=== PATIENT | female | born 1965 | race Caucasian/White ===

== ENCOUNTER 2023-12-19 22:38 | Observation (INO) | payer OTHER, SELFPAY ==
--- NOTE | ~2023-12-19 | CT_ITS ---
Non-contrast Head CT History: Weakness, confusion Technique: Axial non-contrast imaging of the brain was performed. Dose reduction technique was used on this scan by utilizing automated exposure control and iterative reconstruction technique. The dose -length product (DLP) was 605.33 mGy-cm. Findings: There is no evidence of intracranial hemorrhage, mass lesion, or acute infarct. Brain par enchyma appears normal. The ventricles and subarachnoid spaces are normal in size. The calvarium ap pears normal. The visualized paranasal sinuses and mastoid air cells are clear. Impression: No significant abnormality seen. Reviewed, dictated and finalized at location . Impression: No significant abnormality seen.
--- NOTE | ~2023-12-19 | XR_ITS ---
Clinical Indication: Dizziness PA and lateral views of the chest: Comparison: 09/21/2016 Findings: The lungs are clear, without evidence of focal consolidation or pleural effusion. Cardiome diastinal silhouette is within normal limits. Bones and soft tissues are unremarkable. Impression: Normal chest. Reviewed, dictated and finalized at location . Impression: Normal chest.
[2023-12-19 22:44] VITALS: BP 173/86; PULSE 82; RESP 20; TEMP 36.3; O2SAT 99
[2023-12-19 23:01] VITALS: PULSE 79; O2SAT 97
[2023-12-19 23:02] VITALS: BP 175/83; PULSE 78; RESP 16; O2SAT 96
[2023-12-19 23:05] LABS: Basophils Percent Auto 0.5 % (0.2-1.2); Eosinophils Absolute Auto 0.1 K/mm3 (0-0.3); Eosinophils Percent Auto 1.5 % (0-4.4); Hematocrit 38.3 % (37.0-47.0); Hemoglobin 12.6 g/dL (12.0-15.0); Immature Granulocyte Absolute 0.01 K/mm3 (0.00-0.031); Immature Granulocyte Percent A 0.2 % (0-0.5); Lymphocytes Absolute Auto 1.87 K/mm3 (0.9-3.2); Lymphocytes Percent Auto 31.2 % (18.3-44.2); Mean Corpuscular HGB Conc 32.9 g/dl (32-36); Mean Corpuscular Hemoglobin 27.5 pg (26-34); Mean Corpuscular Volume 83.6 fl (80-100); Mean Platelet Volume 10.1 fl (7.4-10.4); Monocytes Absolute Auto 0.4 K/mm3 (0.1-0.6); Neutrophils Absolute Auto 3.6 K/mm3 (1.3-6.7); Neutrophils Percent Auto 59.6 % (45.5-73.1); Platelet Count Result 221 k/mm3 (150-375); Red Blood Count 4.58 M/mm3 (4.2-5.4); Red Cell Distribution Width 13.8 % (11.5-14.5)
[2023-12-19 23:22] LABS: Beta-Hydroxybutyrate/Acetoacetate 0.27 mmol/L (0.02-0.27)
[2023-12-19 23:32] LABS: Alanine Aminotransferase 43 U/L (6-35); Alkaline Phosphatase 121 U/L (38-126); Anion Gap 9 mmol/L (4-12); Aspartate Amino Transferase 50 U/L (14-36); Bilirubin,Total 0.4 mg/dL (0.2-1.3); Blood Urea Nitrogen 36 mg/dL (7-17); Calcium 8.7 mg/dL (8.4-10.2); Carbon Dioxide 21 mmol/L (22-30); Chloride 97 mmol/L (98-107); Estimated CRCL calculation 72 ml/min; Estimated Glomerular Filt Rate > 60; Glucose 722 mg/dL (65-110); Magnesium 1.8 mg/dL (1.6-2.3); Phosphorus 2.9 mg/dL (2.5-4.5); Potassium 4.2 mmol/L (3.4-5.0); Sodium 127 mmol/L (137-145)
[2023-12-19 23:37] LABS: Pregnancy On Board Control Positive; Urine Pregnancy Test Negative
[2023-12-19 23:41] LABS: Add Urine Microscopic? YES; Appearance Urine Clear (Clear); Bacteria Urine 4+ /hpf; Bilirubin Urine Negative (Negative); Blood Urine Negative (Negative); Budding Yeast Urine Present /hpf; Color Urine Yellow (Yellow); Glucose Urine UA 3+ mg/dL (Negative); Ketones Urine Negative (Negative); Leukocyte Esterase Ur Negative LEU/UL (Negative); Need Manual Microscopic Reviewed; Nitrate Urine Positive (Negative); Non Pathogenic Casts 0-2; Protein Urine Negative (Negative); RBC Urine 0-2 /hpf (0-2); Specific Grav Ur 1.029 (1.001-1.035); Squamous Epithelial Cell Urine None Seen /hpf (Few); Urobilinogen Urine 0.2 mg/dL (<2.0); pH Urine 7.5 (5.0-9.0)
[2023-12-19] MEDS: SODIUM CHLORIDE 0.9% IV 1,000 ML 999 ML IV CONT (23:50)
[2023-12-20] VITALS (8 sets, daily range): BP systolic 115–171; BP diastolic 72–87; PULSE 70–88; RESP 14–18; TEMP 36.2–36.4; O2SAT 92–97; BMI 22.6
--- NOTE | 2023-12-20 | ECG_ITS ---
SEE SCANNED COPY FOR CONFIRMED REPORT MTDD
--- NOTE | 2023-12-20 00:02 | ED.WEAKNESS ---
HPI - Weakness General Chief complaint: Weakness Stated complaint: altered, high blood sugar Time Seen by Provider: 12/19/23 23:50 Source: patient Mode of arrival: EMS Limitations: other (poor historian) History of Present Illness HPI Narrative: This is a 58-year-old female that presents to the emergency department for generalized weakness. Reports over the last several hours she has been feeling dizzy and weak. Reports feeling generally unwell. She checked her blood sugar and it was very high which prompted her to be seen. Reports some shortness of breath. Denies fevers or vomiting. Related Data Allergies Allergy/AdvReac Type Severity Reaction Status Date / Time No Known Allergies Allergy Unknown Verified 12/19/23 22:48 Review of Systems Review of Systems: CONSTITUTIONAL: Denies fever CARDIOVASCULAR: Denies chest pain RESPIRATORY: Reports dyspnea. GASTROINTESTINAL: Denies abdominal pain, nausea, vomiting GENITOURINARY: Reports dysuria. Denies hematuria. All systems reviewed & are unremarkable except as noted in HPI and below PMFSH Past Medical History Medical History (Updated 12/20/23 @ 03:23 by Veronica Pike PA-C) History of diabetes mellitus History of hyperlipidemia History of hypertension Social History Social History (Updated 12/20/23 @ 00:05 by Veronica Pike PA-C) Substance use: never Exam Narrative: GENERAL: Well-appearing, well-nourished, and in no acute distress. HEAD: Normocephalic, atraumatic. EYES: PERRLA and EOMI. ENT: Nares clear, no rhinorrhea or epistaxis. Mucous membranes moist. Oropharynx without tonsillar hypertrophy exudate or other lesions. Bilateral TMs pearly paez non-bulging NECK: Supple. No adenopathy or masses. CHEST: Clear to auscultation. No respiratory distress. No wheezes rales or rhonchi HEART: Regular rate and rhythm. No murmur heard. Normal peripheral pulses. ABDOMEN: Soft, nontender, nondistended, normal active bowel sounds. EXTREMITIES: Normal range of motion. No edema or obvious deformity. Strength equal in bilateral upper and lower extremities (5/5) SKIN: Warm, dry, no rash. NEURO: No focal deficits. Alert and oriented x3. Cranial nerves 2-12 grossly intact PSYCH: Normal mood and affect Course Course Emergency Course: Patient updated on her workup and recommendation for admission Consultations Consultation #1: Spoke with hospitalist about patient and workup who accepts admission Date: 12/20/23 Vital Signs Vital signs: Vital Signs Temperature 97.4 F L 12/19/23 22:44 Pulse Rate 82 12/19/23 22:44 Respiratory Rate 20 12/19/23 22:44 Blood Pressure 173/86 H 12/19/23 22:44 Pulse Oximetry 99 12/19/23 22:44 Oxygen Delivery Room Air 12/19/23 22:44 Temperature 97.4 F L 12/19/23 22:44 Pulse Rate 80 12/20/23 03:01 Respiratory Rate 14 12/20/23 03:01 Blood Pressure 135/83 12/20/23 03:01 Pulse Oximetry 95 12/20/23 03:01 Oxygen Delivery Room Air 12/19/23 23:01 MDM - Weakness MDM Narrative Medical decision making narrative: Patient presents to the emergency department for generalized weakness and confusion. Patient is neurologically intact, although a poor historian. She is afebrile and nontoxic appearing. Her vitals are stable. Cbc without leukocytosis. Metabolic panel with blood glucose of 722. Bicarb is 21, no anion gap. Urine without evidence of infection. This will be sent for culture. Beta hydroxybutyrate is not elevated. CT brain without acute findings. Chest x-ray without acute cardiopulmonary abnormality. EKG without concerning changes. Patient updated on her workup and recommendation for admission. Spoke with hospitalist about patient and workup who accepts admission Differential Diagnosis Differential diagnosis: Likely anemia, sepsis, dehydration and other (UTI, hyperglycemia, DKA) Lab Data Attestation: I reviewed the patient's lab results. 12/19/23 23:00 12/19/23 22:59
[2023-12-20 00:28] LABS: Ethanol < 10 mg/dL (<10)
[2023-12-20 00:38] LABS: Amphetamine Screen Urine Negative (Negative); Barbiturate Screen Urine Negative (Negative); Benzodiazepines Screen Urine Negative (Negative); Cannabinoid Screen Urine Negative (Negative); Cocaine Screen Urine Negative (Negative); Methadone Screen Urine Negative (Negative); Opiate Screen Urine Negative (Negative); Phencyclidine Screen Urine Negative (Negative)
[2023-12-20] MEDS: SODIUM CHLORIDE 0.9% IV 1,000 ML 999 ML IV CONT (02:02)
[2023-12-20 02:05] LABS: Glucose Point of Care 476 mg/dl (65-105)
[2023-12-20] MEDS: SODIUM CHLORIDE 0.9% IV 1,000 ML 125 ML IV CONT ×3 (03:17→20:23)
--- NOTE | 2023-12-20 04:25 | ADMGEN ---
This patient, Cathy Lopes, was admitted to [facility] Surg Room 321-02. Patient/family oriented to hospital policies and general routines including ID bracelet, bed and alarms, visiting hours, pain management, procedures, bathroom and other care routines, personal items, smoking policy, room service/diet, and visiting hours. Information on how to activate the Rapid Response Team has been discussed. Patient/Family are encouraged to report perceived risks to care and to ask questions if they do not understand what they are told or what they should do.
[2023-12-20 05:01] LABS: Glucose Point of Care 304 mg/dl (65-105)
--- NOTE | 2023-12-20 05:03 | PC.NURSE ---
Pt unable to tell me exact medications that she takes. This RN used external med list and went over medications with patient to our best ability. Pt said sister can help with medications in the morning.
--- NOTE | 2023-12-20 05:16 | PM.IMHP ---
H&P: HPI History of Present Illness Date/Time: 12/20/23 05:16 Chief Complaint: weakness Narrative: patient is a 58-year-old female who presented to the emergency room but it is 7-8 hours of dizziness weakness patient has history of diabetes and was noted to have a blood sugar of about 700 patient was not in any DKA but had hyperglycemia. Patient also complains of some urgency frequency of urination no abdominal pain nausea vomiting diarrhea patient has history of hyperlipidemia and hypertension Review of Systems Review of Systems: All systems reviewed & are unremarkable except as noted in HPI and below PMFSH Past Medical History Medical History (Updated 12/20/23 @ 05:19 by Antoine Milton MD) History of diabetes mellitus History of hyperlipidemia History of hypertension Family History Family History (Updated 12/20/23 @ 04:27 by Monserrat Fuchs RN) Mother COPD (chronic obstructive pulmonary disease) Grandparent Myocardial infarct Grandparent Myocardial infarct Social History Social History (Updated 12/20/23 @ 00:05 by Veronica Pike PA-C) Smoking status: Never smoker Alcohol intake: never Substance use: never Do You Feel Safe in your Home?: Yes Lack of Transportation: No Lack of Food: Never True Current Housing: I Have Housing Concerned About Future Housing: No Difficulty Paying Gas/Electric Bills: No Difficulty Paying for Meds: No Currently Unemployed: No Education: Grade School Difficulty w/ Childcare or Family Care: No Spiritual care concerns: No Meds Home Medications and Allergies Home Medications Medication Instructions Recorded Confirmed Type atorvastatin 40 mg tablet 40 mg PO DAILY 12/20/23 12/20/23 History blood sugar diagnostic (OneTouch 12/20/23 12/20/23 History Ultra Test strips) empagliflozin 25 mg tablet 25 mg PO DAILY 12/20/23 12/20/23 History (Jardiance) gabapentin 100 mg capsule 100 mg PO TID 12/20/23 12/20/23 History insulin glargine 100 unit/mL (3 4 unit subcut TIDWM 12/20/23 12/20/23 History mL) subcutaneous pen (Basaglar KwikPen U-100 Insulin) insulin lispro 100 unit/mL 23 unit subcut TIDWM 12/20/23 12/20/23 History subcutaneous pen lancets 33 gauge (OneTouch Delica 12/20/23 12/20/23 History Plus Lancet) losartan 25 mg tablet 25 mg PO DAILY 12/20/23 12/20/23 History pen needle, diabetic 31 gauge x 12/20/23 12/20/23 History 5/16 (TRUEplus Pen Needle) Allergies Allergy/AdvReac Type Severity Reaction Status Date / Time No Known Allergies Allergy Unknown Verified 12/20/23 04:31 Vital Signs Vital Signs - 24 hr 12/19/23 22:44 12/19/23 23:01 12/19/23 23:01 Temperature 36.3 C L Pulse Rate 82 79 Respiratory Rate 20 Blood Pressure 173/86 H Pulse Oximetry 99 97 Oxygen Delivery Room Air Room Air 12/19/23 23:02 12/20/23 00:40 12/20/23 01:32 Temperature Pulse Rate 78 83 88 Respiratory Rate 16 17 16 Blood Pressure 175/83 H 115/73 Pulse Oximetry 96 96 94 Oxygen Delivery 12/20/23 02:33 12/20/23 03:01 12/20/23 04:02 Temperature Pulse Rate 81 80 73 Respiratory Rate 18 14 16 Blood Pressure 143/81 H 135/83 142/86 H Pulse Oximetry 92 95 95 Oxygen Delivery Exam Narrative: GENERAL: Well appearing, no acute distress. HEAD: Normocephalic, atraumatic. NECK: Supple. No adenopathy, no masses. RESPIRATORY: respirations nonlabored. , no rales, wheezing. CARDIOVASCULAR: Regular rate and rhythm without murmurs, . Peripheral pulses 2+ and equal bilaterally. ABDOMINAL: Soft, nontender, nondistended, no hepatosplenomegaly. Normoactive BS. MUSCULOSKELETAL: no Epigastric and no hypochondrial tenderness SKIN: Warm, dry, NEURO: A&O X3. Moves all extremities H&P: Results Labs Labs: Short CBC 12/19/23 Range/Units 23:00 WBC 6.0 (4.5-10.0) K/mm3 Hgb 12.6 (12.0-15.0) g/dL Hct 38.3 (37.0-47.0) % Plt Count 221 (150-375) k/mm3 BMP 12/19/23
[2023-12-20 06:15] LABS: Hematocrit 35.6 % (37.0-47.0); Hemoglobin 11.4 g/dL (12.0-15.0); Mean Corpuscular Hemoglobin 27.8 pg (26-34); Mean Corpuscular Volume 86.8 fl (80-100); Mean Platelet Volume 9.6 fl (7.4-10.4); Platelet Count Result 193 k/mm3 (150-375); Red Cell Distribution Width 13.7 % (11.5-14.5); White Blood Count 6.1 K/mm3 (4.5-10.0)
[2023-12-20 06:22] LABS: Alanine Aminotransferase 39 U/L (6-35); Albumin Level 3.3 g/dL (3.5-5.1); Alkaline Phosphatase 102 U/L (38-126); Anion Gap 2 mmol/L (4-12); Aspartate Amino Transferase 43 U/L (14-36); Bilirubin,Total 0.3 mg/dL (0.2-1.3); Blood Urea Nitrogen 26 mg/dL (7-17); Calcium 8.2 mg/dL (8.4-10.2); Carbon Dioxide 24 mmol/L (22-30); Chloride 107 mmol/L (98-107); Estimated CRCL calculation 83 ml/min; Estimated Glomerular Filt Rate > 60; Glucose 331 mg/dL (65-110); Potassium 3.5 mmol/L (3.4-5.0); Sodium 133 mmol/L (137-145)
[2023-12-20 07:13] LABS: Hemoglobin A1C > 14.0 % (<5.7)
[2023-12-20 07:53] LABS: Glucose Point of Care 276 mg/dl (65-105)
--- NOTE | 2023-12-20 08:11 | PM.IMPN ---
Progress Note: A&P Assessment and Plan (1) Acute UTI: Code(s): N39.0 - Urinary tract infection, site not specified Status: Acute Assessment and Plan: UA showed 3+ glucose, positive nitrate, 11-20 urine wbc's, 4+ bacteria, urine yeast present. Urine and blood cultures are obtained and are pending Continue Rocephin (2) Metabolic encephalopathy: Code(s): G93.41 - Metabolic encephalopathy Status: Acute Assessment and Plan: Patient had altered mental status on arrival with high blood sugar of 722, without DKA Continue neuro checks (3) Dehydration: Code(s): E86.0 - Dehydration Status: Acute Assessment and Plan: Patient given 2L NS in the ED (4) Hyperlipidemia: Code(s): E78.5 - Hyperlipidemia, unspecified Status: Chronic Assessment and Plan: Continue atorvastatin (5) Hypertension: Code(s): I10 - Essential (primary) hypertension Status: Acute Assessment and Plan: Blood pressures ranging Continue losartan (6) Diabetes mellitus: Code(s): E11.9 - Type 2 diabetes mellitus without complications Status: Acute Assessment and Plan: Blood sugars ranging 276-331 Hemoglobin A1c greater than 14.0 Initial blood sugar was 722 Continue Jardiance Accu checks AC/HS hypoglycemic protocol in place high dose SSI ordered 20 units of Lantus ordered for tonight will D/C mealtime insulin for now. Time Spent With Patient Time with patient: 25 - 35 minutes Subjective Date/time seen: 12/20/23 08:11 Interval history: This is a 58 year old female who presented to the hospital with dizziness, weakness, and hyperglycemia with BG of 700 without DKA. She also had urinary frequency. Work up in the hospital included chest x-ray which was negative. Head Ct was also negative. Initial labs shown normal WBC 6.0, Na+ 127, Chloride 97, Bicarb 21, anion gap 9, BG 722, Hgb A1C >14.0, AST 43, ALT 39. UA shown 3+ urine glucose, positive nitrates, 11-20 WBC 11-20, 4+ bacteria, urine yeast present. UDS negative. Blood and urine cultures obtained and pending. Patient was started on Rocephin. On examination today patient is alert and oriented x3. Patient denies any fever, chills, nausea, vomiting, diarrhea, abdominal pain, chest pain, shortness a breath. Labs today revealed Hgb 11.4, Na+ 133, BG ranging 276-331, AST 43, ALT 39. Urology seen patient today and is recommending that the Pitt be changed. She will need to follow up with Urology on an outpatient basis for continued care. Last time she had her Pitt changed was back in September/October. Review of Systems Review of Systems: All systems reviewed & are unremarkable except as noted in HPI and below Constitutional: Constitutional: Reports as per HPI and Reports no additional constitutional complaints Eyes: Eyes: Reports as per HPI and Reports no additional eye complaints ENT: Reports system reviewed and no additional complaints, except as documented and Reports as per HPI Cardiovascular: Cardiovascular: Reports as per HPI and Reports no additional cardiovascular complaints Respiratory: Respiratory: Reports as per HPI and Reports no additional respiratory complaints Gastrointestinal: Gastrointestinal: Reports as per HPI and Reports no additional gastrointestinal complaints Genitourinary: Genitourinary: Reports no additional female genitourinary complaints and Reports as per HPI Musculoskeletal: Musculoskeletal: Reports no additional musculoskeletal complaints and Reports as per HPI Integumentary/Breasts: Skin/Breast: Reports system reviewed and no additional complaints, except as docu and Reports as per HPI Neurologic: Reports system reviewed and no additional complaints, except as documented and Reports as per HPI Psychiatric: Psychiatric: Reports no additional psychiatric complaints and Reports as per HPI Exam Narrative: General: In no acute distress, well nourished Head:
[2023-12-20] MEDS: ENOXAPARIN 40 MG/0.4 ML SYRINGE SUB-Q (08:27)
[2023-12-20] MEDS: PANTOPRAZOLE 40 MG TABLET PO (08:28)
[2023-12-20] MEDS: INSULIN ASPART (*BKC) 100 UNITS/ML SUB-Q ×3 (08:28→20:27)
[2023-12-20] MEDS: GABAPENTIN 100 MG CAPSULE PO ×3 (10:19→17:07)
[2023-12-20] MEDS: LOSARTAN POTASSIUM 25 MG TABLET PO (10:19)
[2023-12-20] MEDS: ATORVASTATIN 40 MG TABLET PO (10:19)
[2023-12-20] MEDS: EMPAGLIFLOZIN 25 MG TABLET PO (10:20)
[2023-12-20 11:31] LABS: Glucose Point of Care 257 mg/dl (65-105)
--- NOTE | 2023-12-20 12:22 | WPDURCON ---
Assessment and Plan Assessment and plan (1) Acute UTI: Code(s): N39.0 - Urinary tract infection, site not specified Status: Acute Assessment and Plan: UA slightly abnormal. Urine cultures pending. 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 Has not been compliant with routine catheter management and is not currently established with a urologist. Recommend removal and replacement of new Pitt catheter at this time given timing of last catheter change is unknown. Long discussion with the patient about need for routine monthly catheter changes and discussed risk of infection without proper catheter management. She will need to reestablish care with urology. Will need to be referred to [facility] in [place] due to insurance. 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 She presented to the emergency department on 12/20/2023 with complaints of generalized weakness and overall feeling poorly. On admission, her vital signs were stable, she was afebrile, WBC 6.0, creatinine 0.7. Blood sugar was markedly elevated. UA abnormal with positive nitrates and 11-20 WBC. She was started on empiric IV antibiotics. Urine culture is pending. The patient is a relatively poor historian and not able to provide much relevant history. She isn't entirely sure why she has a chronic Pitt. She estimates that she has had this for about 3 years. She states that she previously saw a urologist at [facility] in [place] though has not been seen in some time. She is unsure when her Pitt catheter was last changed, she states maybe sometime in September or October but she can not be certain. She states it was last changed during an ER visit and does not have anyone who routinely manages her catheter. On evaluation, it does appear to be draining well without any significant sediment. She denies any episodes of hematuria states that her urine has been clear within the Pitt tubing. Review of Systems Review of Systems: All systems reviewed & are unremarkable except as noted in HPI and below PMFSH Past Medical History Medical History (Updated 12/20/23 @ 12:28 by Kailey Schneider PA-C) History of diabetes mellitus History of hyperlipidemia History of hypertension Family History Family History (Updated 12/20/23 @ 04:27 by Monserrat Fuchs, RN) Mother COPD (chronic obstructive pulmonary disease) Grandparent Myocardial infarct Grandparent Myocardial infarct Social History Social History (Updated 12/20/23 @ 00:05 by Veronica Pike PA-C) Smoking status: Never smoker Alcohol intake: never Substance use: never Do You Feel Safe in your Home?: Yes Lack of Transportation: No Lack of Food: Never True Current Housing: I Have Housing Concerned About Future Housing: No Difficulty Paying Gas/Electric Bills: No Difficulty Paying for Meds: No Currently Unemployed: No Education: Grade School Difficulty w/ Childcare or Family Care: No Spiritual care concerns: No Meds Home Medications and Allergies Home Medications Medication Instructions Recorded Confirmed Type atorvastatin 40 mg tablet 40 mg PO DAILY 12/20/23 12/20/23 History blood sugar diagnostic (OneTouch 12/20/23 12/20/23 History Ultra Test strips) empagliflozin 25 mg tablet 25 mg PO DAILY 12/20/23 12/20/23 History (Jardiance) gabapentin 100 mg capsule 100 mg PO TID 12/20/23 12/20/23 History insulin glargine
[2023-12-20 16:51] LABS: Glucose Point of Care 187 mg/dl (65-105)
--- NOTE | 2023-12-20 18:43 | PC.NURSE ---
On 12/20/23, the BOLT LOADER,Joi Jensen, provided care and completed [facility] hospital documentation on this patient. I have reviewed the BOLT LOADER's documentation and agree with the findings.
[2023-12-20] MEDS: INSULIN GLARGINE (*BKC) 100 UNITS/ML 20 UNITS SUB-Q (20:23)
[2023-12-20 20:31] LABS: Glucose Point of Care 288 mg/dl (65-105)
[2023-12-21] MEDS: SODIUM CHLORIDE 0.9% IV 1,000 ML 125 ML IV CONT (05:44)
[2023-12-21 06:00] VITALS: BP 172/86; PULSE 68; RESP 16; TEMP 36.1; O2SAT 97
[2023-12-21 07:01] LABS: Basophils Percent Auto 0.4 % (0.2-1.2); Eosinophils Absolute Auto 0.1 K/mm3 (0-0.3); Eosinophils Percent Auto 2.6 % (0-4.4); Hemoglobin 12.7 g/dL (12.0-15.0); Immature Granulocyte Absolute 0.02 K/mm3 (0.00-0.031); Immature Granulocyte Percent A 0.4 % (0-0.5); Lymphocytes Absolute Auto 1.63 K/mm3 (0.9-3.2); Lymphocytes Percent Auto 32.6 % (18.3-44.2); Mean Corpuscular HGB Conc 31.8 g/dl (32-36); Mean Corpuscular Hemoglobin 27.5 pg (26-34); Mean Corpuscular Volume 86.8 fl (80-100); Mean Platelet Volume 9.7 fl (7.4-10.4); Monocytes Absolute Auto 0.4 K/mm3 (0.1-0.6); Monocytes Percent Auto 7.2 % (2.6-8.5); Neutrophils Absolute Auto 2.8 K/mm3 (1.3-6.7); Neutrophils Percent Auto 56.8 % (45.5-73.1); Platelet Count Result 217 k/mm3 (150-375); Red Blood Count 4.61 M/mm3 (4.2-5.4)
[2023-12-21 07:12] LABS: Alanine Aminotransferase 58 U/L (6-35); Albumin Level 3.5 g/dL (3.5-5.1); Alkaline Phosphatase 103 U/L (38-126); Anion Gap 4 mmol/L (4-12); Aspartate Amino Transferase 78 U/L (14-36); Bilirubin,Total 0.4 mg/dL (0.2-1.3); Blood Urea Nitrogen 17 mg/dL (7-17); Calcium 8.2 mg/dL (8.4-10.2); Carbon Dioxide 25 mmol/L (22-30); Chloride 108 mmol/L (98-107); Estimated CRCL calculation 83 ml/min; Estimated Glomerular Filt Rate > 60; Glucose 236 mg/dL (65-110); Potassium 4.1 mmol/L (3.4-5.0); Sodium 137 mmol/L (137-145)
[2023-12-21 07:28] LABS: Glucose Point of Care 209 mg/dl (65-105)
[2023-12-21 08:00] VITALS: PULSE 68; RESP 16; O2SAT 97
[2023-12-21] MEDS: EMPAGLIFLOZIN 25 MG TABLET PO (09:06)
[2023-12-21] MEDS: ATORVASTATIN 40 MG TABLET PO (09:06)
[2023-12-21] MEDS: GABAPENTIN 100 MG CAPSULE PO ×3 (09:06→17:36)
[2023-12-21] MEDS: PANTOPRAZOLE 40 MG TABLET PO (09:06)
[2023-12-21] MEDS: LOSARTAN POTASSIUM 25 MG TABLET PO (09:06)
[2023-12-21] MEDS: ENOXAPARIN 40 MG/0.4 ML SYRINGE SUB-Q (09:08)
[2023-12-21 11:39] LABS: Glucose Point of Care 259 mg/dl (65-105)
[2023-12-21] MEDS: INSULIN ASPART (*BKC) 100 UNITS/ML SUB-Q ×3 (13:44→20:33)
[2023-12-21 14:00] VITALS: BP 127/89; PULSE 85; RESP 14; TEMP 36.7; O2SAT 97
--- NOTE | 2023-12-21 15:21 | PM.IMPN ---
Progress Note: A&P Assessment and Plan (1) Diabetes mellitus: Code(s): E11.9 - Type 2 diabetes mellitus without complications Status: Acute Assessment and Plan: POORLY CONTROLLED AT LEAST IN PART DUE TO NON ADHERENCE TO MEDICAL AND DIETARY REGIMEN IMPROVED SINCE ADMISSION WITH BLOOD SUGARS 5/25 IN 250 RANGE 5/25 INCREASE LANTUS TO 25 UNITS AT HS AND CONTINUE SLIDING SCALE AND JARDIANCE ANTICIPATE DISCHARGE 12/21 (2) Metabolic encephalopathy: Code(s): G93.41 - Metabolic encephalopathy Status: Acute Assessment and Plan: RESOLVED WITH IMPROVED BLOOD SUGAR CONTROL (3) Chronic indwelling Lozano catheter: Code(s): Z97.8 - Presence of other specified devices Status: Acute Assessment and Plan: CATHETER CHANGED DURING THIS HOSPITALIZATION 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 SHE ADMITS TO NOT FOLLOWING HER DIET AND TO MISSING SEVERAL DOSES OF INSULIN IN THE PAST FEW WEEKS. SHE DOES NOT HAVE A CAR AND HAS DIFFICULTY GETTING OUT AND ABOUT FOR APPOINTMENTS OR TO SHOP. SHE LIVES ALONG. HER LIFE PARTNER IN 2017. TODAY HER BOWELS MOVED. SHE HAS A CHRONIC INDWELLING LOZANO CATHETER DUE TO NEUROGENIC BLADDER. SHE HAS NO BLEEDING CHEST PAIN OR SHORTNESS OF BREATH. SHE WAS A LITTLE LIGHTHEADED WHEN SHE GOT UP TO WALK TO THE BATHROOM TODAY. SHE HAS CHRONIC TINGLING IN HER FEET. NO FOCAL WEAKNESS OR NUMBNESS. NO VISION DIFFICULTIES. SHE DOES HAVE AN ISSUE WITH BOWEL MOVEMENTS AND WISHES TO SPEAK TO A FEMALE PROVIDER REGARDING THAT. SHE WILL ARRANGE THAT AT DISCHARGE. SHE DOES STATE THE SOMETHING SEEMS TO COME OUT WHEN SHE HAS A BOWEL MOVEMENT. Review of Systems Review of Systems: All systems reviewed & are unremarkable except as noted in HPI and below Exam Narrative: General: Awake, alert, comfortable, no acute distress HEENT: Normocephalic, atraumatic, sclerae anicteric Respiratory: Normal respiratory effort, no accessory muscle use Abdomen: Nondistended, soft, nontender : Lozano catheter draining clear yellow urine Skin: Normal coloration, warm and dry Neurologic: No focal neuro deficits noted Psychiatric: AFFECT BLUNTED. MOOD DEPRESSED. Objective Data Vital Signs Vital Signs: Vital Signs - 24 hr 12/20/23 22:00 12/21/23 06:00 Temperature 97.6 F 96.9 F L Pulse Rate 70 68 Respiratory Rate 18 16 Blood Pressure 171/87 H 172/86 H Pulse Oximetry 97 97 Intake/Output Intake/Output: Intake & Output 12/18/23 12/19/23 12/20/23 12/21/23 23:59 23:59 23:59 23:59 Intake Total 5256 2836 Output Total 3475 4025 Balance 1781 -1189 Meds/Results Medications: Active Medications Generic Name Dose Route Start Last Admin Trade Name Freq PRN Reason Stop Dose Admin Atorvastatin Calcium 40 mg 12/20/23 09:00 12/21/23 09:06 Atorvastatin 40 Mg Tablet PO 40 mg DAILY THOM Administration Dextrose 12.5 gm 12/20/23 08:44 Dextrose 50% 25 Gm/50 Ml Syringe IV PUSH PRN PRN Hypoglycemia Protocol Empagliflozin 25 mg 12/20/23 09:00 12/21/23 09:06 Empagliflozin 25 Mg Tablet PO 25 mg DAILY THOM Administration Enoxaparin Sodium 40 mg 12/20/23 09:00 12/21/23 09:08 Enoxaparin 40 Mg/0.4 Ml Syringe SUB-Q 40 mg DAILY THOM Administration Gabapentin 100 mg 12/20/23 09:00 12/21/23 13:44 Gabapentin 100 Mg Capsule PO 100 mg TID THOM Administration Glucagon 1 mg 12/20/23 08:44 Glucagon For Inj 1 Mg Vial IM PRN PRN Hypoglycemia Protocol Glucose 15 gm 12/20/23 08:44
[2023-12-21 16:25] LABS: Glucose Point of Care 267 mg/dl (65-105)
[2023-12-21 19:12] LABS: Toxigenic C. Diff POSITIVE (NEGATIVE)
--- NOTE | 2023-12-21 19:23 | PC.NURSE ---
Provider notified of C DIFF results.
[2023-12-21] MEDS: INSULIN GLARGINE (*BKC) 100 UNITS/ML 25 UNITS SUB-Q (20:32)
[2023-12-21] MEDS: FIDAXOMICIN 200 MG TABLET PO (20:32)
[2023-12-21 21:22] LABS: Glucose Point of Care 261 mg/dl (65-105)
[2023-12-21 21:33] VITALS: BP 149/91; PULSE 73; RESP 13; TEMP 36.1; O2SAT 96
[2023-12-22 05:41] VITALS: BP 140/81; PULSE 76; RESP 14; TEMP 36.1; O2SAT 97
[2023-12-22 06:20] LABS: Anion Gap 4 mmol/L (4-12); Blood Urea Nitrogen 18 mg/dL (7-17); Calcium 8.5 mg/dL (8.4-10.2); Carbon Dioxide 27 mmol/L (22-30); Chloride 105 mmol/L (98-107); Cholesterol 142 mg/dL (0-200); Estimated CRCL calculation 72 ml/min; Estimated Glomerular Filt Rate > 60; Glucose 292 mg/dL (65-110); HDL Direct 72 mg/dL; Potassium 3.6 mmol/L (3.4-5.0); Sodium 136 mmol/L (137-145); Triglycerides 203 mg/dL (<150)
[2023-12-22 06:30] LABS: LDL Cholesterol Direct 40 mg/dL
[2023-12-22 07:30] LABS: Glucose Point of Care 346 mg/dl (65-105)
[2023-12-22 08:00] LABS: Glucose Point of Care 361 mg/dl (65-105)
[2023-12-22] MEDS: INSULIN ASPART (*BKC) 100 UNITS/ML SUB-Q ×2 (08:19→17:07)
[2023-12-22] MEDS: LOSARTAN POTASSIUM 25 MG TABLET PO (08:19)
[2023-12-22] MEDS: PANTOPRAZOLE 40 MG TABLET PO (08:19)
[2023-12-22] MEDS: GABAPENTIN 100 MG CAPSULE PO ×3 (08:19→17:07)
[2023-12-22] MEDS: EMPAGLIFLOZIN 25 MG TABLET PO (08:19)
[2023-12-22] MEDS: ATORVASTATIN 40 MG TABLET PO (08:19)
[2023-12-22] MEDS: FIDAXOMICIN 200 MG TABLET PO (08:19)
[2023-12-22] MEDS: ENOXAPARIN 40 MG/0.4 ML SYRINGE SUB-Q (08:23)
--- NOTE | 2023-12-22 09:45 | PM.DS ---
DS: Admitting Diagnosis Discharge Date 12/21/2021 Admitting Diagnosis Hyperglycemia with metabolic encephalopathy DS: Discharge Diagnosis Discharge Diagnosis (1) Diabetes mellitus: Code(s): E11.9 - Type 2 diabetes mellitus without complications Status: Acute Assessment and Plan: POORLY CONTROLLED AT LEAST IN PART DUE TO NON ADHERENCE TO MEDICAL AND DIETARY REGIMEN IMPROVED SINCE ADMISSION WITH BLOOD SUGARS 5/25 IN 250 RANGE 5/25 INCREASE LANTUS TO 25 UNITS AT HS AND CONTINUE SLIDING SCALE AND JARDIANCE ANTICIPATE DISCHARGE 12/21 (2) Metabolic encephalopathy: Code(s): G93.41 - Metabolic encephalopathy Status: Acute Assessment and Plan: RESOLVED WITH IMPROVED BLOOD SUGAR CONTROL (3) Chronic indwelling Lozano catheter: Code(s): Z97.8 - Presence of other specified devices Status: Acute Assessment and Plan: CATHETER CHANGED DURING THIS HOSPITALIZATION 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 but not Dificid. DS: Summary Hospital Course Hospital Course: Admitted with blood sugar over 700 and altered mental status. Was given IV and a lean in the emergency department. Started back on her Lantus and sliding scale and Jardiance. Admitted to missing medication and not not following diet at home. Did have chronic bowel issues with loose stools and trouble controlling bowels. Was found to have ill in her stool. Treatment was initiated with the send at discharge due to 292 on the morning of discharge. She was up and about independently and performing ADLs. Time Spent with Patient Time attestation: Total time spent providing and/or coordinating discharge services: Exam Narrative: General: Awake, alert, comfortable, no acute distress HEENT: Normocephalic, atraumatic, sclerae anicteric Respiratory: Normal respiratory effort, no accessory muscle use Abdomen: Nondistended, soft, nontender : Lozano catheter draining clear yellow urine Skin: Normal coloration, warm and dry Neurologic: No focal neuro deficits noted Psychiatric: AFFECT BLUNTED. MOOD DEPRESSED. DS: Data Data Completed and Pending Labs on day of discharge: Labs from last 24 hours 05/26/24 05/26/24 05/26/24 07:56 07:26 05:48 Sodium 136 L Potassium 3.6 Chloride 105 Carbon Dioxide 27 Anion Gap 4 BUN 18 H Creatinine 0.70 Estim Creat Clear Calc 72 Estimated GFR > 60 Glucose 292 H POC Capillary Glucose 361 H 346 H Calcium 8.5 Triglycerides 203 H Cholesterol 142 LDL Cholesterol Direct 40 HDL Direct 72 TSH (Reflex) 3.330 C. difficile (PCR) 12/21/23 12/21/23 12/21/23 20:30 16:21 14:03 Sodium Potassium Chloride Carbon Dioxide Anion Gap BUN Creatinine Estim Creat Clear Calc Estimated GFR Glucose POC Capillary Glucose 261 H 267 H Calcium Triglycerides Cholesterol LDL Cholesterol Direct HDL Direct TSH (Reflex) C. difficile (PCR) Positive A* 12/21/23 11:35 Sodium Potassium Chloride Carbon Dioxide Anion Gap BUN Creatinine Estim Creat Clear Calc Estimated GFR Glucose POC Capillary Glucose 259 H Calcium Triglycerides Cholesterol LDL Cholesterol Direct HDL Direct TSH (Reflex) C. difficile (PCR) Preliminary micro results at discharge 12/20/23 00:09 Blood Culture - Preliminary Blood 12/20/23 00:09 Blood Culture - Preliminary Blood Discharge Plan Discharge Attending physic
[2023-12-22 11:39] LABS: Glucose Point of Care 417 mg/dl (65-105)
[2023-12-22] MEDS: INSULIN ASPART (*BKC) 100 UNITS/ML 10 UNITS SUB-Q (12:03)
[2023-12-22] MEDS: VANCOMYCIN HCL 125 MG ORAL CAPSULE PO ×2 (12:05→17:07)
[2023-12-22 14:00] VITALS: BP 136/98; PULSE 91; RESP 16; TEMP 36.1; O2SAT 99
[2023-12-22 16:40] LABS: Glucose Point of Care 334 mg/dl (65-105)
== END 2023-12-22 19:15 | disposition home or self-care (01) ==
LOC: ANHED 12-20 03:23 → ANH3MEDSUR 12-20 10:27
PROVIDERS: Emergency Medicine; Admitting Provider Internal Medicine; Emergency Provider Physician Assistant; PCP Internal Medicine Infectious Disease; Visit Provider Internal Medicine
DX: E11.65 Type 2 diabetes mellitus with hyperglycemia (principal); R82.90 Unspecified abnormal findings in urine; G93.41 Metabolic encephalopathy; R19.7 Diarrhea, unspecified; B96.89 Other specified bacterial agents as the cause of diseases classified elsewhere; E86.0 Dehydration; I10 Essential (primary) hypertension; E78.5 Hyperlipidemia, unspecified; E11.42 Type 2 diabetes mellitus with diabetic polyneuropathy; Z96.0 Presence of urogenital implants; Z79.899 Other long term (current) drug therapy
CPT/HCPCS: 36415; 70450; 71046; 80048; 80053; 80061; 80307; 81001; 81025; 82010; 82948; 83036; 83735; 84100; 84443; 85025; 85027; 87040; 87086; 87088; 87493; 93005; 96361; 96365; 96372; 97161; 99285; A9270; G0378; G0379; J0696; J1650; J1815; J7030

== ENCOUNTER 2024-06-10 12:11 | Emergency (ER) | payer OTHER, SELFPAY ==
--- NOTE | ~2024-06-10 | CT_ITS ---
EXAMINATION: CT abdomen pelvis w con DATE: 06/10/2024 16:56 INDICATION: Abdominal pain TECHNIQUE: Computed tomography (CT) of the abdomen and pelvis was performed with 100 mL Omnipaque-350 intravenous contrast. Automated exposure control and iterative reconstruction technique were employe d. The dose-length product was 446.48 mGy-cm. COMPARISON: None FINDINGS: Discoid atelectasis in the lingula, right middle and bilateral lower lobes. Heart size is normal. No pericardial or pleural effusion. Mild diffuse hepatic steatosis. Likely prior cholecystectomy. Spleen , pancreas and bilateral adrenal glands are normal. Pitt catheter and some gas within the bladder wh ich remains markedly distended and with mild bilateral hydronephrosis and mild right hydroureter whic h suggests persistent: Obstruction and potential obstruction of the Pitt catheter. Gas is seen withi n the lumen of the Pitt catheter distal to the bulb but there is scattered hypoattenuation material within the lumen of the Pitt catheter most prominent at the level of the bulb potentially either tin y bladder stones or clot. There is also some high attenuation material at the periphery of the bulb. Bowels including the appendix are unremarkable. Minimal amount of scattered free fluid in the pelvis. No abscess or free intraperitoneal gas. No pathologically enlarged abdominal or pelvic lymphadenopat hy. Mild lumbar dextrocurvature with severe spondylosis. IMPRESSION: 1. Prominent distention of the bladder and mild bilateral hydronephrosis consistent with bladder outl et obstruction despite the presence of a Pitt catheter. High attenuation material within the lumen o f the catheter which could represent either calcification or clot. 2. Minimal amount of likely reactive ascites in the pelvis. Reviewed, dictated and finalized at location B. [employer]ING [employer]PER[employer]OR IMPRESSION: 1. Prominent distention of the bladder and mild bilateral hydronephrosis consis tent with bladder outlet obstruction despite the presence of a Pitt catheter. High attenuation material within the lumen of the catheter which could represen t either calcification or clot. 2. Minimal amount of likely reactive ascites in the pelvis.
[2024-06-10 12:16] VITALS: BP 159/103; PULSE 97; RESP 28; TEMP 36.4; O2SAT 100
--- NOTE | 2024-06-10 13:25 | ED_ITS ---
HPI - Abdominal Pain General Chief Complaint: Abdominal Pain <Veronica Pike PA-C - Last Filed: 06/12/24 10:22> Stated Complaint: abd pain <Veronica Pike PA-C - Last Filed: 06/12/24 10:22> Time Seen by Provider: 06/10/24 13:25 <Veronica Pike PA-C - Last Filed: 06/12/24 10:22> Focused HPI: This is a 59 year old female that presents to the ER for abdominal pain. Ongoing since this morning. Reports lower abdominal pain as well as epigastric pain. She is unable to have a BM. Denies fever, vomiting, dysuria, hematuria. GENERAL: Uncomfortable, well-nourished HEAD: Normocephalic, atraumatic. CHEST: Clear to auscultation. ?No respiratory distress. HEART: Regular rate and rhythm.? NEURO: ?Alert and oriented x3. Patient screened in triage and initial orders placed.? ?Additional care and disposition to be based upon?diagnostic testing and treatment. <Veronica Pike PA-C - Last Filed: 06/12/24 10:22> History of Present Illness HPI narrative: 59-year-old female presenting with abdominal pain. States that started this morning. States she has a Pitt catheter and she missed her appointment last month to have it replaced. Agree with HPI above. <Colleen Franco MD - Last Filed: 06/10/24 21:18> Related Data Home Medications: Home Medications Medication Instructions Recorded Confirmed blood sugar diagnostic (OneTouch 12/20/23 12/20/23 Ultra Test strips) lancets 33 gauge (OneTouch Delica 12/20/23 12/20/23 Plus Lancet) pen needle, diabetic 31 gauge x 12/20/23 12/20/23 5/16 (TRUEplus Pen Needle) <RENA Curry Last Filed: 06/12/24 10:22> Allergies/Adverse Reactions: Allergies Allergy/AdvReac Type Severity Reaction Status Date / Time No Known Allergies Allergy Unknown Verified 12/20/23 04:31 <RENA Curry Last Filed: 06/12/24 10:22> Review of Systems Review of Systems: All systems reviewed & are unremarkable except as noted in HPI and below <Colleen Franco MD - Last Filed: 06/10/24 21:18> [facility] Past Medical History Medical History: Medical History History of diabetes mellitus History of hyperlipidemia History of hypertension <Veronica Pike PA-C - Last Filed: 06/12/24 10:22> Family History Family History: Family History Mother COPD (chronic obstructive pulmonary disease) Grandparent Myocardial infarct Grandparent Myocardial infarct <Veronica Pike PA-C - Last Filed: 06/12/24 10:22> Social History Social History: Social History Smoking status: Never smoker Alcohol intake: never Substance use: never Do You Feel Safe in your Home?: Yes Lack of Transportation: No Lack of Food: Never True Current Housing: I Have Housing Concerned About Future Housing: No Difficulty Paying Gas/Electric Bills: No Difficulty Paying for Meds: No Currently Unemployed: No Education: Grade School Difficulty w/ Childcare or Family Care: No Spiritual care concerns: No <Veronica Pike PA-C - Last Filed: 06/12/24 10:22> Exam Narrative: GENERAL: chronically ill-appearing, no acute distress, pleasant cooperative HEAD: Normocephalic, atraumatic. EYES: PERRLA and EOMI. ENT: grossly unremarkable NECK: Supple. CHEST: No respiratory distress. HEART: Regular rate and rhythm ABDOMEN: Soft, nontender, nondistended EXTREMITIES: Normal range of motion. No edema. SKIN: Warm, dry, no rash. NEURO: No focal deficits. Alert and oriented x3. PSYCH: Normal mood and affect. <Colleen Franco MD - Last Filed: 06/10/24 21:18> Course Vital Signs Vital signs: Vital Signs Temperature 97.6 F 06/10/24 12:16 Pulse Rate 97 06/10/24 12:16 Respiratory Rate 28 H 06/10/24 12:16 Blood Pressure 159/103 H 06/10/24 12:16 Pulse Oximetry 100 06/10/24 12:16 Oxygen Delivery Room Air 06/10/24 12:16 Temperature 97.6 F 06/10/24 12:16 Pulse Rate 96 06/10/24 20:32 Respiratory Rate 14 06/10/24 20:32 Blood Pressure 124/78 06/10/24 20:32 Pulse Oximetry 93 06/10/24 20:32 Oxygen Delivery Room Air 06/10/24 12:16 <Veronica Pike PA-C - Last Filed: 06/12/24 10:22> Vital Signs Temperature 97.6 F 06/10/24 12:16 Pulse Rate 97 06/10/24 12:16 Respiratory Rate 28 H 06/10/24 12:16 Blood Pressure 159/103 H 06/10/24 12:16 Pulse Oximetry 100 06/10/24 12:16 Oxygen Delivery Room Air 06/10/24 12:16 Temperature 97.6 F 06/10/24 12:16 Pulse Rate 96 06/10/24 20:32 Respiratory Rate 14 06/10/24 20:32 Blood Pressure 124/78 06/10/24 20:32 Pulse Oximetry 93 06/10/24 20:32 Oxygen Delivery Room Air 06/10/24 12:16 <Colleen Franco MD - Last Filed: 06/10/24 21:18> MDM - Abdominal Pain MDM Narrative Medical decision making narrative: 59-year-old female presenting with abdominal pain. Vitals are stable. Exam remarkable for the above. Blood work with hyperglycemia. There is no evidence of DKA. UA looks infected. CT abdomen pelvis shows prominent distention of the bladder and mild bilateral hydronephrosis consistent with bladder outlet obstruction despite the presence of a Pitt catheter. High attenuation material within the lumen of the catheter which could represent either calcification or clot. Pitt catheter was replaced with about a L of immediate output. Patient states that she is feeling much better. She received a dose of IV antibiotics and a L of fluids. Urine output has slowed down. Feel she is safe for outpatient management. Will send in for some Keflex and advised that she follow-up closely with her urologist. Appropriate return precautions given. She is agreeable this plan. Discharged stable condition. <Colleen Franco MD - Last Filed: 06/10/24 21:18> Differential Diagnosis Differential diagnosis: Likely abdominal pain, calculus of kidney, constipation, diverticulitis, small bowel obstruction and other ( Urinary obstruction) <Colleen Franco MD - Last Filed: 06/10/24 21:18> Medical Records Attestation: I reviewed the patient's medical records. <Colleen Franco MD - Last Filed: 06/10/24 21:18> Lab Data Attestation: I reviewed the patient's lab results. <Colleen Franco MD - Last Filed: 06/10/24 21:18> Result diagrams: 06/10/24 13:52 06/10/24 13:52 <Veronica Pike PA-C - Last Filed: 06/12/24 10:22> Labs: Lab Results 06/10/24 06/10/24 06/10/24 Range/Units 13:52 18:09 18:10 WBC 8.5 (4.5-10.0) K/mm3 RBC 4.88 (4.2-5.4) M/mm3 Hgb 13.5 (12.0-15.0) g/dL Hct 42.0 (37.0-47.0) % MCV 86.1 (80-100) fl MCH 27.7 (26-34) pg MCHC 32.1 (32-36) g/dl RDW 14.2 (11.5-14.5) % Plt Count 216 (150-375) k/mm3 MPV 9.8 (7.4-10.4) fl Immature Gran % (Auto) 0.2 (0-0.5) % Neut % (Auto) 83.2 H (45.5-73.1) % Lymph % (Auto) 10.1 L (18.3-44.2) % [place] % (Auto) 6.0 (2.6-8.5) % Eos % (Auto) 0.1 (0-4.4) % Baso % (Auto) 0.4 (0.2-1.2) % Lymph # (Auto) 0.86 L (0.9-3.2) K/mm3 [place] # (Auto) 0.5 (0.1-0.6) K/mm3 Eos # (Auto) 0.0 (0-0.3) K/mm3 Baso # (Auto) 0.0 (0.0-0.1) K/mm3 Abs Immat Gran (auto) 0.02 (0.00-0.031) K/mm3 Absolute Neuts (auto) 7.1 H (1.3-6.7) K/mm3 Absolute Nucleated RBC 0.000 (0.0-0.012) K/mm3 Nucleated RBC % 0.0 (0.0-0.2) % Sodium 135 L (137-145) mmol/L Potassium 4.2 (3.4-5.0) mmol/L Chloride 100 (98-107) mmol/L Carbon Dioxide 28 (22-30) mmol/L Anion Gap 7 (4-12) mmol/L BUN 24 H (7-17) mg/dL Creatinine 0.60 L (0.7-1.0) mg/dL Estim Creat Clear Calc 79 ml/min Estimated GFR > 60 (59 - ) Glucose 455 H (65-110) mg/dL Calcium 9.2 (8.4-10.2) mg/dL Total Bilirubin 0.5 (0.2-1.3) mg/dL AST 60 H (14-36) U/L ALT 49 H (6-35) U/L Alkaline Phosphatase 117 (38-126) U/L Total Protein 8.0 (6.3-8.2) g/dL Albumin 4.3 (3.5-5.1) g/dL Lipase 66 (23-300) U/L Urine Color Yellow (Yellow) Urine Appearance Cloudy H (Clear) Urine pH 5.0 (5.0-9.0) Ur Specific [place] 1.034 (1.001-1.035) Urine Protein 1+ H (Negative) mg/dL Urine Glucose (UA) 3+ H (Negative) mg/dL Urine Ketones Negative (Negative) mg/dL Ur Blood (Man) 3+ H (Negative) Urine Nitrate Negative (Negative) Urine Bilirubin Negative (Negative) Urine Urobilinogen 0.2 (<2.0) mg/dL Add Ur Microanalysis Reviewed Leukocyte Esterase Rfl 2+ H (Negative) DEYANIRA/UL Urine RBC 51-100 H (0-2) /hpf Urine WBC >100 H (0-3) /hpf Ur Squamous Epith Cells None seen (Few) /hpf Urine Bacteria 4+ H /hpf Urine Casts 0-2 POC Urine HCG, Qual Negative (Negative) <Veronica Pike PA-C - Last Filed: 06/12/24 10:22> Lab Results 06/10/24 06/10/24 06/10/24 Range/Units 13:52 18:09 18:10 WBC 8.5 (4.5-10.0) K/mm3 RBC 4.88 (4.2-5.4) M/mm3 Hgb 13.5 (12.0-15.0) g/dL Hct 42.0 (37.0-47.0) % MCV 86.1 (80-100) fl MCH 27.7 (26-34) pg MCHC 32.1 (32-36) g/dl RDW 14.2 (11.5-14.5) % Plt Count 216 (150-375) k/mm3 MPV 9.8 (7.4-10.4) fl Immature Gran % (Auto) 0.2 (0-0.5) % Neut % (Auto) 83.2 H (45.5-73.1) % Lymph % (Auto) 10.1 L (18.3-44.2) % [place] % (Auto) 6.0 (2.6-8.5) % Eos % (Auto) 0.1 (0-4.4) % Baso % (Auto) 0.4 (0.2-1.2) % Lymph # (Auto) 0.86 L (0.9-3.2) K/mm3 [place] # (Auto) 0.5 (0.1-0.6) K/mm3 Eos # (Auto) 0.0 (0-0.3) K/mm3 Baso # (Auto) 0.0 (0.0-0.1) K/mm3 Abs Immat Gran (auto) 0.02 (0.00-0.031) K/mm3 Absolute Neuts (auto) 7.1 H (1.3-6.7) K/mm3 Absolute Nucleated RBC 0.000 (0.0-0.012) K/mm3 Nucleated RBC % 0.0 (0.0-0.2) % Sodium 135 L (137-145) mmol/L Potassium 4.2 (3.4-5.0) mmol/L Chloride 100 (98-107) mmol/L Carbon Dioxide 28 (22-30) mmol/L Anion Gap 7 (4-12) mmol/L BUN 24 H (7-17) mg/dL Creatinine 0.60 L (0.7-1.0) mg/dL Estim Creat Clear Calc 79 ml/min Estimated GFR > 60 (59 - ) Glucose 455 H (65-110) mg/dL Calcium 9.2 (8.4-10.2) mg/dL Total Bilirubin 0.5 (0.2-1.3) mg/dL AST 60 H (14-36) U/L ALT 49 H (6-35) U/L Alkaline Phosphatase 117 (38-126) U/L Total Protein 8.0 (6.3-8.2) g/dL Albumin 4.3 (3.5-5.1) g/dL Lipase 66 (23-300) U/L Urine Color Yellow (Yellow) Urine Appearance Cloudy H (Clear) Urine pH 5.0 (5.0-9.0) Ur Specific [place] 1.034 (1.001-1.035) Urine Protein 1+ H (Negative) mg/dL Urine Glucose (UA) 3+ H (Negative) mg/dL Urine Ketones Negative (Negative) mg/dL Ur Blood (Man) 3+ H (Negative) Urine Nitrate Negative (Negative) Urine Bilirubin Negative (Negative) Urine Urobilinogen 0.2 (<2.0) mg/dL Add Ur Microanalysis Reviewed Leukocyte Esterase Rfl 2+ H (Negative) DEYANIRA/UL Urine RBC 51-100 H (0-2) /hpf Urine WBC >100 H (0-3) /hpf Ur Squamous Epith Cells None seen (Few) /hpf Urine Bacteria 4+ H /hpf Urine Casts 0-2 POC Urine HCG, Qual Negative (Negative) <Colleen Franco MD - Last Filed: 06/10/24 21:18> Imaging Data Radiologist's impression: ITS Impressions Abdomen/Pelvis CT 06/10/24 16:58 IMPRESSION: 1. Prominent distention of the bladder and mild bilateral hydronephrosis consistent with bladder outlet obstruction despite the presence of a Pitt catheter. High attenuation material within the lumen of the catheter which could represent either calcification or clot. 2. Minimal amount of likely reactive ascites in the pelvis. <Veronica Pike PA-C - Last Filed: 06/12/24 10:22> ITS Impressions Abdomen/Pelvis CT 06/10/24 16:58 IMPRESSION: 1. Prominent distention of the bladder and mild bilateral hydronephrosis consistent with bladder outlet obstruction despite the presence of a Pitt catheter. High attenuation material within the lumen of the catheter which could represent either calcification or clot. 2. Minimal amount of likely reactive ascites in the pelvis. <Colleen Franco MD - Last Filed: 06/10/24 21:18> Critical Care Time Critical Care Time Critical Care Time: No <Colleen Franco MD - Last Filed: 06/10/24 21:18> Discharge Plan Discharge Clinical Impression: Complication, blocked Pitt catheter, UTI (urinary tract infection), Nausea <Veronica Pike PA-C - Last Filed: 06/12/24 10:22> Patient Disposition: Home, Self-Care <Veronica Pike PA-C - Last Filed: 06/12/24 10:22> Condition: Stable <Veronica Pike PA-C - Last Filed: 06/12/24 10:22> Instructions: Antibiotic Form, Urinary Tract Infection in Women (DC), Pitt Catheter Placement and Care (ED), How to Change a Catheter Drainage Bag (DC) <Veronica Pike PA-C - Last Filed: 06/12/24 10:22> Additional Instructions: The workup today shows that your Pitt catheter was obstructed. We have replaced the catheter and are treating you with antibiotics. Please follow-up closely with your urologist and PCP. If your symptoms worsen or other concern ing symptoms arise, please return to the ER. <Veronica Pkie PA-C - Last Filed: 06/12/24 10:22> Prescriptions: New cephalexin 500 mg capsule 500 mg PO Q12H 7 Days Qty: 14 0RF ondansetron 4 mg tablet,disintegrating 4 mg PO Q8H PRN (Reason: nausea and vomiting) Qty: 10 0RF No Action (DME) OneTouch Ultra Test Strip MISCELLANEOUS (DME) pen needle, diabetic [TRUEplus Pen Needle] 31 gauge x 5/16 needle MISCELLANEOUS (DME) lancets [OneTouch Delica Plus Lancet] 33 gauge misc MISCELLANEOUS vancomycin 125 mg Capsule 125 mg PO Q6HR Qty: 40 0RF atorvastatin 40 mg tablet 40 mg PO DAILY Qty: 3 0RF losartan 25 mg tablet 25 mg PO DAILY Qty: 30 0RF gabapentin 100 mg capsule 100 mg PO TID Qty: 90 0RF insulin lispro 100 unit/mL insulin pen 4 unit SUBCUT TIDWM Qty: 5 0RF Jardiance 25 mg tablet 25 mg PO DAILY Qty: 30 0RF insulin glargine [Basaglar KwikPen U-100 Insulin] 100 unit/mL (3 mL) insulin pen 30 unit SUBCUT QPM Qty: 5 0RF <Veronica Pike PA-C - Last Filed: 06/12/24 10:22> Follow-up/Referrals: Chris,Monica Haisrton [Primary Care Provider] - <Veronica Pike PA-C - Last Filed: 06/12/24 10:22>
[2024-06-10 14:05] LABS: Basophils Percent Auto 0.4 % (0.2-1.2); Eosinophils Percent Auto 0.1 % (0-4.4); Hemoglobin 13.5 g/dL (12.0-15.0); Immature Granulocyte Absolute 0.02 K/mm3 (0.00-0.031); Immature Granulocyte Percent A 0.2 % (0-0.5); Lymphocytes Absolute Auto 0.86 K/mm3 (0.9-3.2); Lymphocytes Percent Auto 10.1 % (18.3-44.2); Mean Corpuscular HGB Conc 32.1 g/dl (32-36); Mean Corpuscular Hemoglobin 27.7 pg (26-34); Mean Corpuscular Volume 86.1 fl (80-100); Mean Platelet Volume 9.8 fl (7.4-10.4); Monocytes Absolute Auto 0.5 K/mm3 (0.1-0.6); Neutrophils Absolute Auto 7.1 K/mm3 (1.3-6.7); Neutrophils Percent Auto 83.2 % (45.5-73.1); Platelet Count Result 216 k/mm3 (150-375); Red Blood Count 4.88 M/mm3 (4.2-5.4); Red Cell Distribution Width 14.2 % (11.5-14.5); White Blood Count 8.5 K/mm3 (4.5-10.0)
[2024-06-10 14:19] LABS: Alanine Aminotransferase 49 U/L (6-35); Albumin Level 4.3 g/dL (3.5-5.1); Alkaline Phosphatase 117 U/L (38-126); Anion Gap 7 mmol/L (4-12); Aspartate Amino Transferase 60 U/L (14-36); Bilirubin,Total 0.5 mg/dL (0.2-1.3); Blood Urea Nitrogen 24 mg/dL (7-17); Calcium 9.2 mg/dL (8.4-10.2); Carbon Dioxide 28 mmol/L (22-30); Chloride 100 mmol/L (98-107); Estimated CRCL calculation 79 ml/min; Estimated Glomerular Filt Rate > 60; Glucose 455 mg/dL (65-110); Lipase 66 U/L (23-300); Potassium 4.2 mmol/L (3.4-5.0); Sodium 135 mmol/L (137-145)
[2024-06-10 18:10] LABS: BEDSIDEPREGUCG Negative (Negative)
[2024-06-10 18:16] VITALS: BP 132/84; PULSE 97; RESP 17; O2SAT 95
[2024-06-10 18:33] LABS: Add Urine Microscopic? YES; Appearance Urine Cloudy (Clear); Bacteria Urine 4+ /hpf; Bilirubin Urine Negative (Negative); Blood Urine 3+ (Negative); Color Urine Yellow (Yellow); Glucose Urine UA 3+ mg/dL (Negative); Ketones Urine Negative (Negative); Leukocyte Esterase Ur 2+ LEU/UL (Negative); Need Manual Microscopic Reviewed; Nitrate Urine Negative (Negative); Non Pathogenic Casts 0-2; Protein Urine 1+ mg/dL (Negative); RBC Urine 51-100 /hpf (0-2); Specific Grav Ur 1.034 (1.001-1.035); Squamous Epithelial Cell Urine None Seen /hpf (Few); Urobilinogen Urine 0.2 mg/dL (<2.0); WBC Urine >100 /hpf (0-3)
[2024-06-10] MEDS: cefTRIAXone 2 GM/NS 100 ML 2 GM/100 ML BAG IVPB (18:59)
[2024-06-10 19:16] VITALS: BP 138/93; PULSE 103; RESP 17; O2SAT 97
[2024-06-10] MEDS: SODIUM CHLORIDE 0.9% IV 1,000 ML 999 ML IV CONT (19:18)
[2024-06-10] MEDS: KETOROLAC 15 MG/ML VIAL (*BKC) IV PUSH (19:18)
[2024-06-10] MEDS: ONDANSETRON INJ 4 MG/2 ML VIAL IV PUSH (19:19)
[2024-06-10 20:32] VITALS: BP 124/78; PULSE 96; RESP 14; O2SAT 93
== END 2024-06-10 21:42 | disposition home or self-care (01) ==
PROVIDERS: Physician Assistant; Emergency Provider Emergency Medicine; PCP Internal Medicine Infectious Disease
DX: T83.091A Other mechanical complication of indwelling urethral catheter, initial encounter (principal); R11.0 Nausea; I10 Essential (primary) hypertension; E11.9 Type 2 diabetes mellitus without complications; E78.5 Hyperlipidemia, unspecified; Z79.4 Long term (current) use of insulin; Z79.84 Long term (current) use of oral hypoglycemic drugs; Z79.899 Other long term (current) drug therapy; Y84.6 Urinary catheterization as the cause of abnormal reaction of the patient, or of later complication, without mention of misadventure at the time of the procedure
CPT/HCPCS: 36415; 51702; 74177; 80053; 81001; 81025; 83690; 85025; 96361; 96365; 96375; 99284; J0696; J1885; J2405; J7030; Q9967

== ENCOUNTER 2024-10-28 15:46 | Emergency (ER) | payer OTHER, SELFPAY ==
[2024-10-28] VITALS (8 sets, daily range): BP systolic 117–165; BP diastolic 77–97; PULSE 74–94; RESP 16–20; TEMP 37.2–37.9; O2SAT 94–99
--- NOTE | ~2024-10-28 | CT_ITS ---
CLINICAL INDICATION: Urinary tract infection, fever, weakness COMPARISON: 06/10/2024. TECHNIQUE: Multiple contiguous axial images of the abdomen and pelvis were performed without the admi nistration of intravenous contrast The dose-length product (DLP) was 387.42 mGy-cm. Automated exposure control and iterative reconstruction technique were employed. FINDINGS/OBSERVATIONS: Visualized lower thorax: Consolidation with air bronchograms in the left lung base. The remainder of the lung bases are clear. The heart is of normal size, without pericardial effusion. Small hiatal hernia is present. Liver: The liver demonstrates homogeneous attenuation and is enlarged measuring 20 cm in longitudinal dimens ion. Gallbladder and biliary system: The gallbladder is surgically absent. Pancreas: Limited evaluation of the pancreas secondary to the lack of intravenous contrast. Spleen: The spleen demonstrates homogeneous attenuation and is borderline enlarged measuring 12 cm in longitu dinal dimension. Kidneys: Trace bilateral hydroureteronephrosis. No obstructing stones are visualized. Adrenal glands: Unremarkable. Gastrointestinal tract: Fecal stasis within the colon. Appendix: The appendix is of normal caliber (axial series, images 112 through 122). Vasculature: Unremarkable. Lymph nodes: Limited evaluation without intravenous contrast. Pelvic structures: The bladder is decompressed with a Pitt catheter, limiting its evaluation. The uterus is either surgically absent or markedly atrophic. Body wall and musculoskeletal: Small fat-containing umbilical hernia. Age advanced degenerative disease within the lumbosacral spine. IMPRESSION: Hepatomegaly. Borderline splenomegaly Left basilar infiltrate. Reviewed, dictated and finalized at location A.
--- OUTSIDE RECORDS SUMMARY | 2024-10-28 16:40 | XMS_ITS | Clinical Summary ---
Author Organization [facility] Address [address] [facility] [place] [place] [address] Care Team Providers Care Advertising Rep Name Role Phone Marika Perez MD Primary Care Provider Source Comments [facility],non-owned Affiliates and Associated Physician Practices is amultiple site organization consisting of ambulatory clinics and hospital sitesin [place], [place], [place] and [place]. This disclosure is being madepursuant to the Care Everywhere program and may not contain all information available regarding this patient. Last updated 18.[facility] Allergies No known active allergies Medications * Be aware that medications may not be up to date on this document. Alwaysverify current medications with the patient. Medication Sig Dispensed Refills Start Date End Date Status insulin syringe-needle (BD ULTRAFINE II) 31G X 5/16 1 ML syringe For insulin administration. 100 syringe 1 10/23/2018 Active lancets Use 1 Each once daily 100 Each 1 10/23/2018 Active blood glucose test strip Use 1 strip as directed 50 strip 1 10/23/2018 Active Blood Glucose Monitoring Suppl (FREESTYLE FREEDOM LITE) W/DEVICE KIT Use 1 kit as directed Please check your sugars at least 4 times a day - when you first wake up and 1 hour after every meal. Any generic equivalents can be substituted. 1 kit 10/23/2018 Active acetaminophen (TYLENOL) 500 MG capsule Take 1 capsule by mouth every 4 hours as needed for Fever, Pain or Headache 30 capsule 1 10/23/2018 Active atorvastatin (Lipitor) 40 MG tablet Take 1 (one) tablet by mouth at bedtime Active insulin glargine (Lantus/Semglee) 100 units/mL pen Inject 20 (twenty) Units subcutaneously at bedtime 15 mL 03/28/2023 Active insulin aspart (NovoLOG) pen Inject 16 (sixteen) Units subcutaneously 3 times daily with meals. May also inject 8 (eight) Units as needed with food (WITH SNACKS OUTSIDE OF NORMAL MEALTIMES). 30 mL 03/28/2023 Active losartan (Cozaar) 25 MG tablet Take 1 (one) tablet by mouth once daily 03/29/2023 Active sulfamethoxazole -trimethoprim (Bactrim DS; Septra DS) 800-160 MG tablet Take 2 (two) tablets by mouth every 12 hours for 4 days 16 tablet 03/28/2023 Active gabapentin (Neurontin) 100 MG capsule TAKE 3 CAPSULES BY MOUTH AT BEDTIME 30 capsule 10/25/2023 Active sulfamethoxazole -trimethoprim (Bactrim DS; Septra DS) 800-160 MG tablet TAKE ONE TABLET BY MOUTH EVERY 12 HOURS FOR 3 DAYS 6 tablet 10/25/2023 Active Active Problems Problem Noted Date Diagnosed Date Acute cystitis without hematuria 10/22/2023 Complicated urinary tract infection 03/24/2023 Abscess of muscle of lower leg 01/19/2023 Leg edema, left 01/19/2023 Claudication 01/19/2023 Urinary retention 01/19/2023 Uncontrolled type 2 DM with hyperosmolar nonketotic hyperglycemia 01/19/2023 HLD (hyperlipidemia) 01/19/2023 HTN (hypertension) 01/19/2023 Uterine mass 10/14/2018 Gallstones 10/14/2018 Small bowel obstruction 10/14/2018 Immunizations Name Administration Dates Next Due INFLUENZA VACCINE, QUADR. (F LUZONE; FLULAVAL; FLUARIX; AFLURIA QUADRIVALENT; 6MO+), 0.5 ML (IIV4) 10/15/2018 Social History Tobacco Use Types Packs/Day Years Used Date Smoking Tobacco: Never Smokeless Tobacco: Never Tobacco Cessation:Counseling Given: Not Answered Alcohol Use Standard Drinks/Week Comments No 0 (1 standard drink = 0.6 oz pur e alcohol) AUDIT-C Answer Date Recorded Q1: How often do you have a drink containing alcohol? Never 03/26/2023 Q2: How many drinks containi ng alcohol do you have on a typical day when you are drinking? Patient does not drink 3 Q3: How often do you have si x or more drinks on one occasion? Never 03/26/2023 Overall Financial Resource Strain (CARDIA) Answe r Date Recorded How hard is it for you to pa y for the very basics like food, housing, medical care, and heating? Not hard at all 03/26/2023 [facility] - Occupational Stress Questionnaire Answer Date Recorded Do you feel stress - tense, restless, nervous, or anxious, or unable to sleep at night because your mind is troubled all the time - these days? To some extent 03/26/2023 Hunger Vital Sign Answer Date Recorded Within the past 12 months, y ou worried that your food would run out before you got the money to buy more. Never true 03/26/20 23 Within the past 12 months, t he food you bought just didn't last and you didn't have money to get more. Never true 03/26/2023 PRAPARE - Transportation Answer Date Re corded In the past 12 months, has l ack of transportation kept you from medical appointments or from getting medications? No 02/27 In the past 12 months, has l ack of transportation kept you from meetings, work, or from getting things needed for daily living? No 03/26/2023 Housing Stability Vital Sign Answer Constantin e Recorded In the last 12 months, was t here a time when you were not able to pay the mortgage or rent on time? No 03/26/2023 In the last 12 months, how many places have you lived? 1 03/26/2023 In the last 12 months, was t here a time when you did not have a steady place to sleep or slept in a detention (including now)? No 03/26/2023 Sex and Gender Information Value Date Recorded Sex Assigned at Not on file Gender Identity Not on file Sexual Orientation Not on file Last Filed Vital Signs Vital Sign Reading Time Taken Comments Blood Pressure 136/86 10/25/2023 7:56 AM CDT Pulse 80 10/25/2023 7:56 AM CDT Temperature 36.3 C (97.4 F) 10/25/2023 7:56 AM CDT Respiratory Rate 17 10/25/2023 7:56 AM CDT Oxygen Saturation 96% 10/25/2023 7:56 AM CDT Inhaled Oxygen Concentration - - Weight 63.5 kg (140 lb) 10/22/2023 10:07 PM CDT Height 162.6 cm (5' 4 ) 10/22/2023 10:07 PM CDT Body Mass Index 24.03 10/22/2023 10:07 PM CDT Plan of Treatment Health Maintenance Due Date Last Done Comments COLOGUARD (AGES 45-75) - COLON CA SCREENING 1967 COLON MONITORING 1967 COLONOSCOPY - COLON CA SCREENING 1967 CT COLONOGRAPHY - COLON CA SCREENING 1967 Colorectal Cancer Screening 1967 FIT - COLON CA SCREENING 1967 FLEX SIG - COLON CA SCREENING 1967 MAMMOGRAM 1967 PAP SMEAR 1967 HIV SCREENING 1982 HEPATITIS C SCREENING 04/18/1985 DTAP/TDAP/TD VACCINES (1 - Tdap) 1986 HEPATITIS B VACCINE (1 of 3 - 19+ 3-dose series) 1986 PNEUMOCOCCAL VACCINE 50+ (1 of 2 - PCV) 1986 PNEUMOCOCCAL VACCINE (1 of 2 - PCV) 1986 ZOSTER VACCINE (1 of 2) 2017 DIABETES RETINOPATHY SCREENING 01/19/2023 DIABETES-FOOT EXAM WITH MONOFILAMENT 01/19/2023 DIABETES-HGB A1C 01/23/2024 10/23/2023, , 10/16/2018, Additional history exists COVID-19 VACCINE ( season) 2024 03/17/2021, 02/17/2021 INFLUENZA VACCINE (#1) 2024 2, 08/17/2021, 05/05/2020, Additional history exists DEPRESSION SCREENING 07/29/2024 DIABETES - URINE PROTEIN SCREENING 07/29/2024 DIABETES-SERUM CREATININE 10/24/20242023, 10/24/2023, 10/23/2023, Additional history exists HIB VACCINE Aged Out No longer eligi ble based on patient's age to complete this topic HPV VACCINE Aged Out No longer eligi ble based on patient's age to complete this topic MENINGOCOCCAL (Group B) VACCINE SHARED DECISION-MAKING Aged Out No longer eligible based on patient's age to complete this topic MENINGOCOCCAL GROUPS A/C/Y/W VACCINE Aged Out No longer eligible based on patient's age to complete this topic Procedures Procedure Name Priority Date/Time Associated Diagnosis Comments BASIC METABOLIC PANEL (CALCIUM TOTAL) AM Draw 10/25/2023 5:08 AM CDT HEMOGLOBIN A1C Routine 10/23/2023 8:25 AM CDT Complicated urinary tract infection Type 2 diabetes mellitus with hyperglycemia, with long-term current use of insulin from Last 3 Months or Most Recently Relevant to Health Maintenance Results * (ABNORMAL) BASIC METABOLIC PANEL (CALCIUM TOTAL) (10/25/2023 5:08 AM CDT) BUN 12 7 - 26 mg/dL 10/25/2023 6:24 AM [facility] Creatinine 0.77 0.56 - 0.96 mg/dL 10/25/2023 6:24 AM [facility] Sodium 138 136 - 145 mmol/L 10/25/2023 6:24 AM [facility] Potassium 4.0 3.5 - 4.5 mmol/L 10/25/2023 6:24 AM [facility] Chloride 103 98 - 107 mmol/L 10/25/2023 6:24 AM [facility] CO2 26 22 - 29 mmol/L 10/25/2023 6:24 AM [facility] Glucose 329(H) 70 - 115 mg/dL 10/25/2023 6:24 AM [facility] Calcium 9.0 8.4 - 10.2 mg/dL 10/25/2023 6:24 AM [facility] Anion Gap 9 6 - 16 10/25/2023 6:24 AM [facility] BUN/Creatinine Ratio 16 7 - 23 10/25/2023 6:24 AM [facility] Osmolality Calculated 299(H) 275 - 295 mOsm/kg 10/25/2023 6:24 AM [facility] eGFR by CKD-EPI 90 >=90 mL/min/1.7 3 m2 10/25/2023 6:24 AM [facility] Blood BLOOD SPECIMEN / Unknown Lab Venipuncture / Unknown 10/25/2023 5:08 AM CDT 10/25/2023 5:56 AM CDT Tiago Jones MD LAB - CHEMISTRY [facility] [address] [place] [address], [facility] [phone] * (ABNORMAL) HEMOGLOBIN A1C (10/23/2023 8:25 AM CDT) Hemoglobin A1c >14.0(H) <=5.6 % 10/23/2023 3:19 PM CDT [facility] Comment:Confirmed by repeat analysis. Estimated Average Glucose >355 mg/dL 10/23/2023 3:19 PM CDT [facility] Comment: HbA1c Interpretation: Normal : < 5.7% Pre-diabetes: 5.7-6.4% Diabetes: Equal to or greater than 6.5% Test results diagnostic of diabetes should be repeated for confirmation. Treatment target values recommended by ADA and other clinical organizations should be used to evaluate metabolic control in patients. Reference: [place] Diabetes Association, Standards of Care in Diabetes -2020 In patients 70 years and older consider HbA1c target range of 7.0-7.5% (Reference: Jovan A, et al. ZULEIMADA. 2012) The Sebia assay for the measurement of HbA1c is a National Glycohemoglobin Standardization Program (NGSP) certified method. HbA1c Interpretation: Normal : < 5.7% Pre-diabetes: 5.7-6.4% Diabetes: Equal to or greater than 6.5% Test results diagnostic of diabetes should be repeated for confirmation. Treatment target values recommended by ADA and other clinical organizations should be used to evaluate metabolic control in patients. Reference: [place] Diabetes Association, Standards of Care in Diabetes -2020 In patients 70 years and older consider HbA1c target range of 7.0-7.5% (Reference: Jovan Foote, et al. ZULEIMADA. 2012) The Sebia assay for the measurement of HbA1c is a National Glycohemoglobin Standardization Program (NGSP) certified method. Blood BLOOD SPECIMEN / Unknown Lab Venipuncture / Unknown 10/23/2023 8:25 AM CDT 10/23/2023 8:51 AM CDT Gato Mckeon MD LAB - CHEMISTRY ORDERABLES [facility] [address] [place] [address], [place] [phone] from Last 3 Months or Most Recently Relevant to Health Maintenance Additional Health Concerns Infection Onset Date Last Indicated ESBL GNR 10/24/2023 10/24/2023 Advance Directives * Full Code (Latest Code Status on File) Date Activated Date Inactivated Comments 10/22/2023 10:06 PM 10/25/2023 9:48 PM * Full Code Date Activated Date Inactivated Comments 03/24/2023 11:09 PM 03/28/2023 9:15 PM * Full Code Date Activated Date Inactivated Comments 01/19/2023 2:20 PM 01/26/2023 7:29 PM * Full Code Date Activated Date Inactivated Comments 10/14/2018 4:54 PM 10/23/2018 8:44 PM Care Teams Advertising Rep Relationship Specialty Start Date End Date Marika Perez MD [address], [place] [id number] PCP - General 10/30/18
--- OUTSIDE RECORDS SUMMARY | 2024-10-28 16:40 | XMS_ITS | CONTINUITY OF CARE DOCUMENT ---
Author Name marjorie amador Address Unknown Organization [facility] Address [address] [place] [address] [address] [place] [address] Phone [phone] Care Team Providers Care Agriculture Professor Name Role Phone José Antonio Ramon MD Unavailable José Antonio Ramon MD Unavailable [phone] INSURANCE PROVIDERS Payer name Policy type / Coverage type [place] red constitution party ID TRUNG MEDICAID (2) Medicaid [id number]
[2024-10-28 16:56] LABS: Add Urine Microscopic? YES; Appearance Urine Cloudy (Clear); Bacteria Urine 1+ /hpf; Bilirubin Urine Negative (Negative); Blood Urine 2+ (Negative); Color Urine Yellow (Yellow); Glucose Urine UA 3+ mg/dL (Negative); Ketones Urine Trace mg/dL (Negative); Leukocyte Esterase Ur Trace LEU/UL (Negative); Nitrate Urine Positive (Negative); Non Pathogenic Casts 0-2; Protein Urine 2+ mg/dL (Negative); RBC Urine 21-50 /hpf (0-2); Squamous Epithelial Cell Urine None Seen /hpf (Few); Urobilinogen Urine 0.2 mg/dL (<2.0); WBC Urine >100 /hpf (0-3); pH Urine 6.5 (5.0-9.0)
[2024-10-28 17:02] LABS: Basophils Percent Auto 0.2 % (0.2-1.2); Eosinophils Absolute Auto 0.1 K/mm3 (0-0.3); Eosinophils Percent Auto 2.7 % (0-4.4); Hematocrit 34.6 % (37.0-47.0); Hemoglobin 11.6 g/dL (12.0-15.0); Immature Granulocyte Absolute 0.01 K/mm3 (0.00-0.031); Immature Granulocyte Percent A 0.2 % (0-0.5); Lymphocytes Absolute Auto 1.01 K/mm3 (0.9-3.2); Lymphocytes Percent Auto 24.6 % (18.3-44.2); Mean Corpuscular HGB Conc 33.5 g/dl (32-36); Mean Corpuscular Hemoglobin 28.6 pg (26-34); Mean Corpuscular Volume 85.2 fl (80-100); Mean Platelet Volume 8.9 fl (7.4-10.4); Monocytes Absolute Auto 0.4 K/mm3 (0.1-0.6); Neutrophils Absolute Auto 2.6 K/mm3 (1.3-6.7); Neutrophils Percent Auto 62.3 % (45.5-73.1); Platelet Count Result 149 k/mm3 (150-375); Red Blood Count 4.06 M/mm3 (4.2-5.4); Red Cell Distribution Width 13.5 % (11.5-14.5); White Blood Count 4.1 K/mm3 (4.5-10.0)
[2024-10-28 17:15] LABS: Alanine Aminotransferase 42 U/L (6-35); Albumin Level 3.6 g/dL (3.5-5.1); Alkaline Phosphatase 124 U/L (38-126); Anion Gap 9 mmol/L (4-12); Aspartate Amino Transferase 48 U/L (14-36); Bilirubin,Total 0.3 mg/dL (0.2-1.3); Blood Urea Nitrogen 16 mg/dL (7-17); Calcium 8.5 mg/dL (8.4-10.2); Carbon Dioxide 28 mmol/L (22-30); Chloride 95 mmol/L (98-107); Estimated CRCL calculation 72 ml/min; Estimated Glomerular Filt Rate > 60; Glucose 328 mg/dL (65-110); Potassium 3.8 mmol/L (3.4-5.0); Sodium 132 mmol/L (137-145)
--- OUTSIDE RECORDS SUMMARY | 2024-10-28 17:20 | XMS_ITS | Clinical Summary ---
Author Organization [facility] Address [address] [facility] [place] [address] Care Team Providers Care School Health Aide Name Role Phone Marika Perez MD Primary Care Provider Source Comments [facility],non-owned Affiliates and Associated Physician Practices is amultiple site organization consisting of ambulatory clinics and hospital sitesin [place], [place], [place] and [place]. This disclosure is being madepursuant to the Care Everywhere program and may not contain all information available regarding this patient. Last updated 18.[facility] Allergies No known active allergies Medications * [...] and heating? Not hard at all 03/26/2023 [facility] of Occupat ional [facility] - Occupational Stress Questionnaire Answer Date Recorded [...] place to sleep or slept in a retirement (including now)? No 03/26/2023 Sex and Gender [...] [facility] [address] [place] [address], [place] [phone] * (ABNORMAL) HEMOGLOBIN A1C (10/23/2023 8:25 AM [...] to evaluate metabolic control in patients. Reference: [place] Diabetes Association, Standards of Care in Diabetes [...] to evaluate metabolic control in patients. Reference: [place] Diabetes Association, Standards of Care in Diabetes [...] Gato Mckeon MD LAB - CHEMISTRY ORDERABLES [facility] [address] [place] [address], [place] [phone] from Last 3 Months or Most Recently [...] 4:54 PM 10/23/2018 8:44 PM Care Teams School Health Aide Relationship Specialty Start Date End Date Marika Perez MD [address] [place], [place] [phone] PCP - General 10/30/18
--- OUTSIDE RECORDS SUMMARY | 2024-10-28 17:20 | XMS_ITS | CONTINUITY OF CARE DOCUMENT ---
Author Name marjorie amador Address Unknown Organization [facility] Address [address] [place] [address] [address] [place] [address] Phone [phone] Care Team Providers Care Spray Applicator Name Role Phone José Antonio Ramon MD Unavailable [phone] José Antonio Ramon MD Unavailable [phone] INSURANCE PROVIDERS Payer name Policy type / Coverage type [place] red libertarian ID [id number] MEDICAID (2) Medicaid [id number]
--- NOTE | 2024-10-28 17:25 | ED_ITS ---
HPI - Female Genitourinary General Chief complaint: Urogenital-Female Stated complaint: catheter problems Time Seen by Provider: 10/28/24 17:08 Source: patient Mode of arrival: ambulatory Limitations: no limitations History of Present Illness HPI Narrative: This is a 59 year old female that presents to the ER for feeling generally unwell. Reports fever, chills, headache. Reports she is due to have her vences catheter changed, is unsure when is was changed last. Related Data Home Medications ?Medication ?Instructions ?Recorded ?Confirmed ?Last Taken ?Type blood sugar diagnostic (OneTouch 12/20/23 12/20/23 Unknown History Ultra Test strips) lancets 33 gauge (OneTouch Delica 12/20/23 12/20/23 Unknown History Plus Lancet) pen needle, diabetic 31 gauge x 12/20/23 12/20/23 Unknown History 12/11 (TRUEplus Pen Needle) Allergies Allergy/AdvReac Type Severity Reaction Status Date / Time No Known Allergies Allergy Unknown Verified 10/28/24 16:37 Review of Systems 2 Review of Systems: CONSTITUTIONAL: Reports fever, chills GASTROINTESTINAL: Denies abdominal pain, nausea, vomiting GENITOURINARY: Denies hematuria. All systems reviewed & are unremarkable except as noted in HPI and below PMFSH Past Medical History Medical History History of diabetes mellitus History of hyperlipidemia History of hypertension Family History Family History Mother COPD (chronic obstructive pulmonary disease) Grandparent Myocardial infarct Grandparent Myocardial infarct Social History Social History Smoking status: Never smoker Alcohol intake: never Substance use: never Do You Feel Safe in your Home?: Yes Lack of Transportation: No Lack of Food: Never True Current Housing: I Have Housing Concerned About Future Housing: No Difficulty Paying Gas/Electric Bills: No Difficulty Paying for Meds: No Currently Unemployed: No Education: Grade School Difficulty w/ Childcare or Family Care: No Spiritual care concerns: No Exam 2 Narrative: GENERAL: Well-appearing, well-nourished, and in no acute distress. HEAD: Normocephalic, atraumatic. EYES: EOMI. ENT: Nares clear, no rhinorrhea or epistaxis. Mucous membranes moist. Oropharynx without tonsillar hypertrophy exudate or other lesions. NECK: Supple. No adenopathy or masses CHEST: Clear to auscultation. No respiratory distress. No wheezes rales or rhonchi HEART: Regular rate and rhythm. No murmur heard. Normal peripheral pulses. ABDOMEN: Soft, nontender, nondistended, normal active bowel sounds. EXTREMITIES: Normal range of motion. No edema. SKIN: Warm, dry, no rash. NEURO: No focal deficits. Alert and oriented x3. PSYCH: Normal mood and affect Course Course Emergency Course: patient and family updated on workup and agree with plan of care Vital Signs Vital signs: Vital Signs Temperature 98.9 F 10/28/24 15:50 Pulse Rate 94 10/28/24 15:50 Respiratory Rate 18 10/28/24 15:50 Blood Pressure 163/87 H 10/28/24 15:50 Pulse Oximetry 97 10/28/24 15:50 Oxygen Delivery Room Air 10/28/24 15:50 Temperature 98.9 F 10/28/24 18:50 Pulse Rate 84 10/28/24 19:15 Respiratory Rate 20 10/28/24 19:15 Blood Pressure 137/81 10/28/24 19:15 Pulse Oximetry 96 10/28/24 19:15 Oxygen Delivery Room Air 10/28/24 15:50 MDM - Female Genitourinary MDM Narrative Medical decision making narrative: Patient presents to the ER for fever, vences catheter replacement. Low grade fever in the ER. She is nontoxic appearing. Is not tachycardic, blood pressure stable. Cbc without leukocytosis. Metabolic panel normal appearing kidney function. Lactic acid is not elevated. Urine with evidence of infection. This was sent for culture. Patient started on IV antibiotics. CT abdomen pelvis without acute intra-abdominal findings. Shows left basilar pneumonia. Patient given 1st dose of antibiotics IV in the ER. Will be discharged with oral antibiotics. She is to follow up with primary provider. She was given warnings to return to the ER Differential Diagnosis Differential diagnosis: Likely urinary tract infection and other (kidney stone, pneumonia, dehydration) Lab Data Attestation: I reviewed the patient's lab results. 10/28/24 16:55 10/28/24 16:55 Labs: Lab Results 04/09/2210/28/24 10/28/24 Range/Units 16:44 16:55 17:28 WBC 4.1 L (4.5-10.0) K/mm3 RBC 4.06 L (4.2-5.4) M/mm3 Hgb 11.6 L (12.0-15.0) g/dL Hct 34.6 L (37.0-47.0) % MCV 85.2 (80-100) fl MCH 28.6 (26-34) pg MCHC 33.5 (32-36) g/dl RDW 13.5 (11.5-14.5) % Plt Count 149 L (150-375) k/mm3 MPV 8.9 (7.4-10.4) fl Immature Gran % (Auto) 0.2 (0-0.5) % Neut % (Auto) 62.3 (45.5-73.1) % Lymph % (Auto) 24.6 (18.3-44.2) % [place] % (Auto) 10.0 H (2.6-8.5) % Eos % (Auto) 2.7 (0-4.4) % Baso % (Auto) 0.2 (0.2-1.2) % Lymph # (Auto) 1.01 (0.9-3.2) K/mm3 [place] # (Auto) 0.4 (0.1-0.6) K/mm3 Eos # (Auto) 0.1 (0-0.3) K/mm3 Baso # (Auto) 0.0 (0.0-0.1) K/mm3 Abs Immat Gran (auto) 0.01 (0.00-0.031) K/mm3 Absolute Neuts (auto) 2.6 (1.3-6.7) K/mm3 Absolute Nucleated RBC 0.000 (0.0-0.012) K/mm3 Nucleated RBC % 0.0 (0.0-0.2) % Sodium 132 L (137-145) mmol/L Potassium 3.8 (3.4-5.0) mmol/L Chloride 95 L (98-107) mmol/L Carbon Dioxide 28 (22-30) mmol/L Anion Gap 9 (4-12) mmol/L BUN 16 (7-17) mg/dL Creatinine 0.64 L (0.7-1.0) mg/dL Estim Creat Clear Calc 72 ml/min Estimated GFR > 60 (59 - ) Glucose 328 H (65-110) mg/dL Lactic Acid 1.1 (0.7-2.0) mmol/L Calcium 8.5 (8.4-10.2) mg/dL Total Bilirubin 0.3 (0.2-1.3) mg/dL AST 48 H (14-36) U/L ALT 42 H (6-35) U/L Alkaline Phosphatase 124 (38-126) U/L C-Reactive Protein 0.8 (<1.0) mg/dL Total Protein 7.0 (6.3-8.2) g/dL Albumin 3.6 (3.5-5.1) g/dL Urine Color Yellow (Yellow) Urine Appearance Cloudy H (Clear) Urine pH 6.5 (5.0-9.0) Ur Specific [place] 1.030 (1.001-1.035) Urine Protein 2+ H (Negative) mg/dL Urine Glucose (UA) 3+ H (Negative) mg/dL Urine Ketones Trace H (Negative) mg/dL Ur Blood (Man) 2+ H (Negative) Urine Nitrate Positive H (Negative) Urine Bilirubin Negative (Negative) Urine Urobilinogen 0.2 (<2.0) mg/dL Leukocyte Esterase Rfl Trace H (Negative) DEYANIRA/UL Urine RBC 21-50 H (0-2) /hpf Urine WBC >100 H (0-3) /hpf Ur Squamous Epith Cells None seen (Few) /hpf Urine Bacteria 1+ H /hpf Urine Casts 0-2 Influenza A (RT-PCR) Negative (Negative) Influenza B (RT-PCR) Negative (Negative) RSV (RT-PCR) Negative (Negative) SARS-CoV-2 RNA (RT-PCR) Negative (Negative) Imaging Data Radiologist's impression: ITS Impressions Abdomen/Pelvis CT 10/28/24 20:37 IMPRESSION: Hepatomegaly. Borderline splenomegaly Left basilar infiltrate. Critical Care Time Critical Care Time Critical Care Time: No Discharge Plan Discharge Clinical Impression: Acute UTI, Chronic indwelling Vences catheter Pneumonia Qualifiers: Pneumonia type: due to unspecified organism Laterality: left Lung location: l ower lobe of lung Qualified Code(s): J18.9 - Pneumonia, unspecified organism Patient Disposition: Home, Self-Care Condition: Stable Instructions: Antibiotic Form, Urinary Tract Infection in Women (ED), Community Acquired Pneumonia (ED) Additional Instructions: Return to the emergency department if you experience fever, chest pain, shortness of breath, abdominal pain with nausea and vomiting, your unable to keep down liquids or solids, or any other symptoms that are concerning to you. Remain well hydrated. Take oral antibiotics as prescribed Follow up with primary care doctor Patient Language: Ethiopian Prescriptions: New cefdinir 300 mg capsule 300 mg PO Q12H 7 Days Qty: 14 0RF azithromycin 250 mg tablet 250 mg PO DAILY 4 Days Qty: 4 0RF Rx Instructions: start on day 2 of therapy No Action cephalexin 500 mg capsule 500 mg PO Q12H 7 Days Qty: 14 0RF ondansetron 4 mg tablet,disintegrating 4 mg PO Q8H PRN (Reason: nausea and vomiting) Qty: 10 0RF (DME) OneTouch Ultra Test Strip MISCELLANEOUS (DME) pen needle, diabetic [TRUEplus Pen Needle] 31 gauge x 5/16 needle MISCELLANEOUS (DME) lancets [OneTouch Delica Plus Lancet] 33 gauge misc MISCELLANEOUS vancomycin 125 mg Capsule 125 mg PO Q6HR Qty: 40 0RF atorvastatin 40 mg tablet 40 mg PO DAILY Qty: 3 0RF losartan 25 mg tablet 25 mg PO DAILY Qty: 30 0RF gabapentin 100 mg capsule 100 mg PO TID Qty: 90 0RF insulin lispro 100 unit/mL insulin pen 4 unit SUBCUT TIDWM Qty: 5 0RF Jardiance 25 mg tablet 25 mg PO DAILY Qty: 30 0RF insulin glargine [Basaglar KwikPen U-100 Insulin] 100 unit/mL (3 mL) insulin pen 30 unit SUBCUT QPM Qty: 5 0RF Follow-up/Referrals: Chris,Neetu Hairston. [Primary Care Provider] -
[2024-10-28 17:26] LABS: CRP 0.8 mg/dL (<1.0)
[2024-10-28] MEDS: ACETAMINOPHEN 500 MG TABLET 1000 MG PO (17:29)
[2024-10-28 17:40] LABS: Influenza A QL RT-PCR Negative (Negative); Influenza B QL RT-PCR Negative (Negative); RSV RNA, RT-PCR Negative (Negative); SARS-CoV-2 RNA PCR Negative (Negative)
[2024-10-28 18:04] LABS: Lactic Acid Reflex 1.1 mmol/L (0.7-2.0)
[2024-10-28] MEDS: AZITHROMYCIN 500 MG/NS 250 ML 500 MG/250 ML BAG 250 MG IVPB (21:32)
== END 2024-10-28 23:15 | disposition home or self-care (01) ==
PROVIDERS: Emergency Medicine; Physician Assistant; Emergency Provider Physician Assistant; PCP Internal Medicine Infectious Disease
DX: N39.0 Urinary tract infection, site not specified (principal); J18.9 Pneumonia, unspecified organism; Z20.822 Contact with and (suspected) exposure to COVID-19; I10 Essential (primary) hypertension; E78.5 Hyperlipidemia, unspecified; E11.9 Type 2 diabetes mellitus without complications; R16.0 Hepatomegaly, not elsewhere classified
CPT/HCPCS: 36415; 51702; 74176; 80053; 81001; 83605; 85025; 86140; 87040; 87086; 87637; 96365; 96367; 99284; A9270; J0456; J0696